=== PATIENT | female | born 1965 | race Caucasian/White ===

== ENCOUNTER 2017-10-26 06:07 | Day surgery (SDC) | payer OTHER ==
[~2017-10-26 06:07] MED LIST: CEFAZOLIN 2 GM/50 ML (PMX) 50 ML IVPB
[2017-10-26] MEDS ORDERED: MIDAZOLAM 1 MG/ML 2 ML INJ (06:26)
[2017-10-26] MEDS ORDERED: PROPOFOL 20 ML (06:26)
[2017-10-26] MEDS ORDERED: ROCURONIUM 50 MG INJ (06:26)
[2017-10-26] MEDS ORDERED: NEOSTIGMINE 3 MG/3 ML SYRINGE (06:26)
[2017-10-26] MEDS ORDERED: GLYCOPYRROLATE 0.4 MG INJ (06:26)
[2017-10-26] MEDS ORDERED: FENTAnyl 50 MCG/ML VIAL (06:26)
[2017-10-26] MEDS ORDERED: SUCCINYLCHOLINE CHLORIDE 100 MG/5 ML SYG IV ×2 (06:29→07:49)
[2017-10-26] MEDS ORDERED: FENTAnyl 50 MCG/ML VIAL IV (06:30)
[2017-10-26] MEDS ORDERED: MIDAZOLAM 1 MG/ML 2 ML INJ IV (06:30)
[2017-10-26] MEDS ORDERED: hydrALAzine 20 MG INJ IV (06:30)
[2017-10-26] MEDS ORDERED: HYDROmorphONE (0.2 MG/ML) 10ML SYG IV ×3 (06:30)
[2017-10-26] MEDS ORDERED: DIPHENHYDRAMINE 50 MG INJ IV (06:30)
[2017-10-26] MEDS ORDERED: LABETALOL HCL 20MG INJ IV (06:30)
[2017-10-26] MEDS ORDERED: OXYCODONE/ACETAMINOPHEN (5/325) TAB PO (06:30)
[2017-10-26] MEDS ORDERED: morphine (1 MG/ML) 10ML SYRINGE IV ×3 (06:30)
[2017-10-26] MEDS ORDERED: EPHEDrine SULFATE 50 MG/5 ML SYG IV (06:30)
[2017-10-26] MEDS ORDERED: ATROPINE 1 MG/10 ML SYRINGE IV (06:30)
[2017-10-26] MEDS ORDERED: DEXAMETHASONE 4 MG/ML 1 ML INJ (06:31)
[2017-10-26] MEDS ORDERED: ONDANSETRON 4 MG INJ (06:32)
[2017-10-26] MEDS ORDERED: CEFAZOLIN 1 GM INJ (07:00)
[2017-10-26] MEDS ORDERED: LIDOCAINE 100 MG SYRINGE (07:00)
[2017-10-26] MEDS: MEPERIDINE 25 MG INJ IV (08:59)
[2017-10-26] MEDS: ONDANSETRON 4 MG INJ IV (08:59)
[2017-10-26] MEDS: FENTAnyl 50 MCG/ML VIAL IV ×2 (08:59→09:05)
[2017-10-26] MEDS: OXYCODONE/ACETAMINOPHEN (5/325) TAB PO (09:53)
== END 2017-10-26 10:40 | disposition home or self-care (01) ==
LOC: SDS 06:07
DX: D25.9 Leiomyoma of uterus, unspecified (principal); N92.1 Excessive and frequent menstruation with irregular cycle; E11.9 Type 2 diabetes mellitus without complications; E78.5 Hyperlipidemia, unspecified; E66.01 Morbid (severe) obesity due to excess calories; Z68.41 Body mass index [BMI] 40.0-44.9, adult
CPT/HCPCS: 58558; 82962; 88305

== ENCOUNTER 2018-04-18 19:54 | Emergency (ER) | payer OTHER ==
[2018-04-18] MEDS: ONDANSETRON 4 MG INJ IV (20:37)
[2018-04-18] MEDS: HYDROmorphONE 0.5 MG/0.5 ML SYG IV (20:37)
[2018-04-18] MEDS: SOD CHLORIDE 0.9% 1,000 ML IV (20:37)
[2018-04-18 20:38] LABS: URINE PH (Dip) POC 6.5 (5.0-8.5)
[2018-04-18 20:38] LABS: URINE BLOOD (Dip) POC Negative (NEGATIVE); URINE KETONES (Dip) POC Negative (NEGATIVE); URINE LEUKOCYTE EST (Dip) POC Negative (NEGATIVE); URINE NITRITE (Dip) POC Negative (NEGATIVE); URINE TOTAL PROTEIN POC Negative (NEGATIVE)
[2018-04-18 20:44] LABS: ADD MAN DIFF? NO
[2018-04-18 20:46] LABS: BASOPHILS % 0.2 % (0.0-2.0); EOSINOPHILS # 0.1 10^3/ul (0.0-0.5); EOSINOPHILS % 1.1 % (0.0-7.0); HEMATOCRIT 37.5 % (37.0-47.0); HEMOGLOBIN 11.6 g/dl (12.0-16.0); LYMPHOCYTES # 1.5 10^3/ul (0.8-2.9); LYMPHOCYTES % 28.2 % (15.0-51.0); MEAN CORPUSCULAR HEMOGLOBIN 25.8 pg (29.0-33.0); MEAN CORPUSCULAR HGB CONC 30.9 g/dl (32.0-37.0); MEAN CORPUSCULAR VOLUME 83.5 fl (82.0-101.0); MEAN PLATELET VOLUME 10.7 fl (7.4-10.4); MONOCYTE # 0.5 10^3/ul (0.3-0.9); MONOCYTES % 9.9 % (0.0-11.0); NEUTROPHIL # 3.3 10^3/ul (1.6-7.5); NEUTROPHILS % 60.4 % (39.0-77.0); PLATELET COUNT 147 10^3/UL (140-415); RED BLOOD COUNT 4.49 10^6/ul (4.20-5.40); RED CELL DISTRIBUTION WIDTH 15.3 % (11.5-14.5)
[2018-04-18 20:46] LABS: WHITE BLOOD COUNT 5.5 10^3/ul (4.8-10.8)
[2018-04-18 21:15] LABS: ALANINE AMINOTRANSFERASE 78 IU/L (13-69); ALKALINE PHOSPHATASE 60 IU/L (42-121); ANION GAP 12 (8-16); ASPARTATE AMINO TRANSFERASE 61 IU/L (15-46); BILIRUBIN,INDIRECT 0.4 mg/dl (0-1.1); BILIRUBIN,TOTAL 0.4 mg/dl (0.2-1.3); BLOOD UREA NITROGEN 12 mg/dl (7-20); CALCIUM 9.6 mg/dl (8.4-10.2); CARBON DIOXIDE 27 mmol/L (21-31); CHLORIDE 109 mmol/L (97-110); CREATININE 0.66 mg/dl (0.44-1.00); GLUCOSE 137 mg/dl (70-220); LIPASE 114 U/L (23-300); SODIUM 144 mmol/L (135-144)
== END 2018-04-18 22:53 | disposition home or self-care (01) ==
LOC: E/R 19:54
DX: K59.00 Constipation, unspecified (principal); D64.9 Anemia, unspecified; R74.0 Nonspecific elevation of levels of transaminase and lactic acid dehydrogenase [LDH]; E11.9 Type 2 diabetes mellitus without complications; Z79.84 Long term (current) use of oral hypoglycemic drugs; Z85.41 Personal history of malignant neoplasm of cervix uteri
CPT/HCPCS: 36415; 80053; 81003; 81025; 83690; 85025; 96374; 96375; 99284-25

== ENCOUNTER 2018-05-09 11:20 | Inpatient (IN) | payer OTHER ==
[2018-05-08 12:18] LABS: ADD MAN DIFF? NO
[2018-05-08 12:21] LABS: WHITE BLOOD COUNT 3.5 10^3/ul (4.8-10.8)
[2018-05-08 12:21] LABS: BASOPHILS % 0.6 % (0.0-2.0); EOSINOPHILS % 1.1 % (0.0-7.0); HEMATOCRIT 37.3 % (37.0-47.0); HEMOGLOBIN 11.7 g/dl (12.0-16.0); LYMPHOCYTES # 1.3 10^3/ul (0.8-2.9); LYMPHOCYTES % 36.8 % (15.0-51.0); MEAN CORPUSCULAR HEMOGLOBIN 26.2 pg (29.0-33.0); MEAN CORPUSCULAR HGB CONC 31.4 g/dl (32.0-37.0); MEAN CORPUSCULAR VOLUME 83.4 fl (82.0-101.0); MEAN PLATELET VOLUME 10.7 fl (7.4-10.4); MONOCYTE # 0.3 10^3/ul (0.3-0.9); MONOCYTES % 9.1 % (0.0-11.0); NEUTROPHIL # 1.8 10^3/ul (1.6-7.5); NEUTROPHILS % 52.1 % (39.0-77.0); PLATELET COUNT 125 10^3/UL (140-415); RED BLOOD COUNT 4.47 10^6/ul (4.20-5.40); RED CELL DISTRIBUTION WIDTH 15.9 % (11.5-14.5)
[2018-05-08 12:23] LABS: ADD UMIC NO; UR ASCORBIC ACID NEGATIVE (NEGATIVE); UR BILIRUBIN (Dip) NEGATIVE (NEGATIVE); UR BLOOD (Dip) NEGATIVE (NEGATIVE); UR CLARITY CLEAR (CLEAR); UR COLOR YELLOW (YELLOW); UR GLUCOSE (Dip) NEGATIVE (NEGATIVE); UR KETONES (Dip) NEGATIVE (NEGATIVE); UR LEUKOCYTE ESTERASE (Dip) NEGATIVE Leu/ul (NEGATIVE); UR NITRITE (Dip) NEGATIVE (NEGATIVE); UR SPECIFIC GRAVITY (Dip) 1.018 (1.003-1.030); UR TOTAL PROTEIN (Dip) NEGATIVE (NEGATIVE); UR UROBILINOGEN (Dip) 1+ mg/dL (NEGATIVE)
[2018-05-08 12:38] LABS: ALANINE AMINOTRANSFERASE 75 IU/L (13-69); ALBUMIN 3.5 g/dl (3.3-4.9); ALBUMIN/GLOBULIN RATIO 0.87; ALKALINE PHOSPHATASE 57 IU/L (42-121); ANION GAP 11 (8-16); ASPARTATE AMINO TRANSFERASE 62 IU/L (15-46); BILIRUBIN,INDIRECT 0.5 mg/dl (0-1.1); BILIRUBIN,TOTAL 0.5 mg/dl (0.2-1.3); BLOOD UREA NITROGEN 9 mg/dl (7-20); CALCIUM 9.8 mg/dl (8.4-10.2); CARBON DIOXIDE 29 mmol/L (21-31); CHLORIDE 105 mmol/L (97-110); CREATININE 0.62 mg/dl (0.44-1.00); GLUCOSE 134 mg/dl (70-220); POTASSIUM 4.3 mmol/L (3.5-5.1); SODIUM 141 mmol/L (135-144); TOTAL PROTEIN 7.5 g/dl (6.1-8.1)
[2018-05-08 12:40] LABS: PROTIME 13.3 Sec (11.9-14.9)
[2018-05-08 12:41] LABS: PARTIAL THROMBOPLASTIN TIME 31.9 Sec (23.0-35.0)
[~2018-05-09 11:20] MED LIST changes: +CEFAZOLIN 1 GM INJ; -CEFAZOLIN 2 GM/50 ML (PMX) 50 ML IVPB; +HETASTARCH 6% NACL 500 ML BAG; +SUCCINYLCHOLINE CHLORIDE 100 MG/5 ML SYG IV
[2018-05-09] MEDS ORDERED: MIDAZOLAM 1 MG/ML 2 ML INJ (13:55)
[2018-05-09] MEDS ORDERED: CEFAZOLIN 1 GM INJ (13:55)
[2018-05-09] MEDS ORDERED: morphine SULFATE/PF (10 MG/10 ML) INJ (13:55)
[2018-05-09] MEDS ORDERED: ROCURONIUM 50 MG INJ (13:55)
[2018-05-09] MEDS ORDERED: PROPOFOL 20 ML (13:55)
[2018-05-09] MEDS ORDERED: ROPIVACAINE 0.5 % 30 ML VIAL (13:55)
[2018-05-09] MEDS ORDERED: PHENYLephrine (100 MCG/ML) 5ML SYG ×4 (14:31→17:01)
[2018-05-09] MEDS ORDERED: EPHEDrine SULFATE 50 MG/5 ML SYG (14:45)
[2018-05-09] MEDS ORDERED: METOCLOPRAMIDE 10 MG INJ (16:04)
[2018-05-09] MEDS ORDERED: ACETAMINOPHEN 1000MG/100ML IV 100 ML (16:04)
[2018-05-09] MEDS ORDERED: DEXAMETHASONE 4 MG/ML 1 ML INJ (16:04)
[2018-05-09] MEDS ORDERED: SUGAMMADEX SODIUM 200 MG/2 ML VIAL IV (16:04)
[2018-05-09] MEDS ORDERED: ONDANSETRON 4 MG INJ (16:04)
[2018-05-09] MEDS ORDERED: KETOROLAC 30 MG INJ (16:04)
[2018-05-09] MEDS ORDERED: morphine 2 MG INJ IV ×3 (17:00→18:00)
[2018-05-09] MEDS ORDERED: HYDROCODONE/APAP (5/325) TAB PO ×2 (17:00→18:00)
[2018-05-09] MEDS ORDERED: ALBUMIN HUMAN 5% 250 ML (17:37)
[2018-05-09] MEDS: ALBUMIN HUMAN 5% 250 ML IV (17:52)
[2018-05-09] MEDS ORDERED: ACETAMINOPHEN 500 MG TAB PO (18:00)
[2018-05-09] MEDS ORDERED: HYDROmorphONE 1 MG/5 ML IV SYRINGE IV ×3 (18:00)
[2018-05-09] MEDS ORDERED: NALOXONE (0.4 MG/ML) INJ IV (18:00)
[2018-05-09] MEDS ORDERED: HYDROmorphONE 0.5 MG/0.5 ML SYG IV (18:00)
[2018-05-09] MEDS ORDERED: hydrALAzine 20 MG INJ IV (18:00)
[2018-05-09] MEDS ORDERED: OXYCODONE/ACETAMINOPHEN (5/325) TAB PO (18:00)
[2018-05-09] MEDS ORDERED: MEPERIDINE 25 MG INJ IV (18:00)
[2018-05-09] MEDS ORDERED: FENTAnyl 50 MCG/ML VIAL IV ×3 (18:00)
[2018-05-09] MEDS ORDERED: METOCLOPRAMIDE 10 MG INJ IV (18:00)
[2018-05-09] MEDS ORDERED: LABETALOL HCL 20MG INJ IV (18:00)
[2018-05-09] MEDS ORDERED: ONDANSETRON 4 MG INJ IV ×2 (18:00)
[2018-05-09] MEDS ORDERED: NALBUPHINE HCL (10 MG/1 ML) INJ IV (18:00)
[2018-05-09] MEDS ORDERED: DIPHENHYDRAMINE 50 MG INJ IV ×2 (18:00)
[2018-05-09] MEDS ORDERED: EPHEDrine SULFATE 50 MG/5 ML SYG IV (18:00)
[2018-05-09] MEDS: EPHEDrine SULFATE 50 MG/5 ML SYG IV (18:08)
[2018-05-09 18:44] LABS: ADD MAN DIFF? NO
[2018-05-09 18:46] LABS: WHITE BLOOD COUNT 4.9 10^3/ul (4.8-10.8)
[2018-05-09 18:46] LABS: EOSINOPHILS % 0.4 % (0.0-7.0); HEMATOCRIT 37.1 % (37.0-47.0); HEMOGLOBIN 11.1 g/dl (12.0-16.0); LYMPHOCYTES # 0.9 10^3/ul (0.8-2.9); LYMPHOCYTES % 17.5 % (15.0-51.0); MEAN CORPUSCULAR HEMOGLOBIN 25.8 pg (29.0-33.0); MEAN CORPUSCULAR HGB CONC 29.9 g/dl (32.0-37.0); MEAN CORPUSCULAR VOLUME 86.3 fl (82.0-101.0); MEAN PLATELET VOLUME 11.5 fl (7.4-10.4); MONOCYTE # 0.1 10^3/ul (0.3-0.9); MONOCYTES % 2.3 % (0.0-11.0); NEUTROPHIL # 3.9 10^3/ul (1.6-7.5); NEUTROPHILS % 79.4 % (39.0-77.0); PLATELET COUNT 111 10^3/UL (140-415); RED CELL DISTRIBUTION WIDTH 15.9 % (11.5-14.5)
[2018-05-09 19:02] LABS: ANION GAP 9 (8-16); BLOOD UREA NITROGEN 8 mg/dl (7-20); CALCIUM 7.8 mg/dl (8.4-10.2); CARBON DIOXIDE 23 mmol/L (21-31); CHLORIDE 114 mmol/L (97-110); GLUCOSE 119 mg/dl (70-220); POTASSIUM 3.9 mmol/L (3.5-5.1); SODIUM 142 mmol/L (135-144)
[2018-05-09] MEDS: HYDROmorphONE 0.5 MG/0.5 ML SYG IV (20:07)
[2018-05-10 05:07] LABS: ABNORMAL IP MESSAGE 1; ADD MAN DIFF? NO; HEMATOCRIT 33.1 % (37.0-47.0); HEMOGLOBIN 10.1 g/dl (12.0-16.0); LYMPHOCYTES # 0.5 10^3/ul (0.8-2.9); LYMPHOCYTES % 12.7 % (15.0-51.0); MEAN CORPUSCULAR HGB CONC 30.5 g/dl (32.0-37.0); MEAN CORPUSCULAR VOLUME 85.3 fl (82.0-101.0); MONOCYTE # 0.2 10^3/ul (0.3-0.9); MONOCYTES % 4.5 % (0.0-11.0); NEUTROPHIL # 3.3 10^3/ul (1.6-7.5); NEUTROPHILS % 82.6 % (39.0-77.0); PLATELET COUNT 111 10^3/UL (140-415); RED BLOOD COUNT 3.88 10^6/ul (4.20-5.40); RED CELL DISTRIBUTION WIDTH 15.8 % (11.5-14.5)
[2018-05-10] MEDS: SOD CHLORIDE 0.9% 500 ML IV (05:13)
[2018-05-10 05:41] LABS: ANION GAP 8 (8-16); BLOOD UREA NITROGEN 10 mg/dl (7-20); CALCIUM 7.8 mg/dl (8.4-10.2); CARBON DIOXIDE 24 mmol/L (21-31); CHLORIDE 111 mmol/L (97-110); CREATININE 0.55 mg/dl (0.44-1.00); GLUCOSE 172 mg/dl (70-220); POTASSIUM 4.9 mmol/L (3.5-5.1); SODIUM 138 mmol/L (135-144)
[2018-05-10 05:49] LABS: POSITIVE DIFF @See below
[2018-05-10] MEDS: ACETAMINOPHEN 325 MG TAB PO ×3 (06:40→17:55)
[2018-05-10] MEDS ORDERED: GLUCOSE GEL 15 GRAM TUBE BUCCAL (08:30)
[2018-05-10] MEDS ORDERED: GLUCAGON 1 MG INJ IM (08:30)
[2018-05-10] MEDS ORDERED: GLUCOSE GEL 15 GRAM TUBE PO ×2 (08:30)
[2018-05-10] MEDS ORDERED: DEXTROSE 50% 50 ML SYRINGE IV ×2 (08:30)
[2018-05-10] MEDS: DOCUSATE SODIUM 100 MG CAP PO ×2 (08:48→20:34)
[2018-05-10] MEDS: RANITIDINE 150 MG TAB PO ×2 (08:48→20:34)
[2018-05-10] MEDS: CHOLECALCIFEROL 2,000 UNIT CAP PO (08:48)
[2018-05-10] MEDS: POLYETHYLENE GLYCOL 17 GM PACKET PO ×2 (08:49→20:35)
[2018-05-10] MEDS: metFORMIN 500 MG TAB PO ×2 (08:49→20:37)
[2018-05-10] MEDS: CLOTRIMAZOLE 1% 30 GM CR TOP ×2 (09:46→20:37)
[2018-05-10] MEDS: SERTRALINE 50 MG TAB PO (09:46)
[2018-05-10] MEDS ORDERED: ACCU-CHEK XX (11:10)
[2018-05-10] MEDS: INSULIN ASPART [NOVOLOG] 3 ML PEN SC ×3 (11:40→20:37)
[2018-05-10] MEDS: ACCU-CHEK XX ×3 (12:37→21:00)
[2018-05-10] MEDS: MEDROXYPROGESTERONE 10 MG TAB PO (12:48)
[2018-05-10] MEDS ORDERED: GLIMEPIRIDE 4 MG TAB PO (17:55)
[2018-05-10] MEDS: ATORVASTATIN 20 MG TAB PO (20:35)
[2018-05-11] MEDS: ACETAMINOPHEN 325 MG TAB PO ×3 (02:05→17:32)
[2018-05-11 05:01] LABS: ADD MAN DIFF? NO
[2018-05-11 05:03] LABS: BASOPHILS % 0.2 % (0.0-2.0); EOSINOPHILS % 0.3 % (0.0-7.0); HEMATOCRIT 33.7 % (37.0-47.0); HEMOGLOBIN 10.1 g/dl (12.0-16.0); LYMPHOCYTES # 2.1 10^3/ul (0.8-2.9); LYMPHOCYTES % 32.7 % (15.0-51.0); MEAN CORPUSCULAR HEMOGLOBIN 25.6 pg (29.0-33.0); MEAN CORPUSCULAR VOLUME 85.3 fl (82.0-101.0); MEAN PLATELET VOLUME 10.8 fl (7.4-10.4); MONOCYTE # 0.6 10^3/ul (0.3-0.9); MONOCYTES % 8.9 % (0.0-11.0); NEUTROPHIL # 3.6 10^3/ul (1.6-7.5); NEUTROPHILS % 57.6 % (39.0-77.0); PLATELET COUNT 129 10^3/UL (140-415); RED BLOOD COUNT 3.95 10^6/ul (4.20-5.40); RED CELL DISTRIBUTION WIDTH 15.9 % (11.5-14.5)
[2018-05-11 05:03] LABS: WHITE BLOOD COUNT 6.3 10^3/ul (4.8-10.8)
[2018-05-11 05:27] LABS: ANION GAP 9 (8-16); BLOOD UREA NITROGEN 15 mg/dl (7-20); CALCIUM 8.7 mg/dl (8.4-10.2); CARBON DIOXIDE 25 mmol/L (21-31); CHLORIDE 111 mmol/L (97-110); CREATININE 0.69 mg/dl (0.44-1.00); GLUCOSE 118 mg/dl (70-220); POTASSIUM 4.7 mmol/L (3.5-5.1); SODIUM 140 mmol/L (135-144)
[2018-05-11] MEDS: INSULIN ASPART [NOVOLOG] 3 ML PEN SC ×3 (07:50→17:33)
[2018-05-11] MEDS: ACCU-CHEK XX ×3 (08:42→17:33)
[2018-05-11] MEDS: POLYETHYLENE GLYCOL 17 GM PACKET PO (08:42)
[2018-05-11] MEDS: MEDROXYPROGESTERONE 10 MG TAB PO (08:43)
[2018-05-11] MEDS: SERTRALINE 50 MG TAB PO (08:43)
[2018-05-11] MEDS: CLOTRIMAZOLE 1% 30 GM CR TOP (08:43)
[2018-05-11] MEDS: metFORMIN 500 MG TAB PO (08:43)
[2018-05-11] MEDS: RANITIDINE 150 MG TAB PO (08:43)
[2018-05-11] MEDS: CHOLECALCIFEROL 2,000 UNIT CAP PO (08:43)
[2018-05-11] MEDS: DOCUSATE SODIUM 100 MG CAP PO (08:43)
== END 2018-05-11 20:20 | disposition home or self-care (01) | DRG 740 ==
LOC: REC 11:20 → MS1 18:45
PROC: 0UT9FZZ Resection of Uterus, Via Natural or Artificial Opening With Percutaneous Endoscopic Assistance (ICD-10-PCS; principal; 2018-05-09 13:00)
PROC: 0UT7FZZ Resection of Bilateral Fallopian Tubes, Via Natural or Artificial Opening With Percutaneous Endoscopic Assistance (ICD-10-PCS; 2018-05-09 13:00)
PROC: 0UT2FZZ Resection of Bilateral Ovaries, Via Natural or Artificial Opening With Percutaneous Endoscopic Assistance (ICD-10-PCS; 2018-05-09 13:00)
DX: C54.1 Malignant neoplasm of endometrium (principal); Z68.41 Body mass index [BMI] 40.0-44.9, adult; E66.9 Obesity, unspecified; I10 Essential (primary) hypertension; E78.5 Hyperlipidemia, unspecified; E11.9 Type 2 diabetes mellitus without complications; D64.9 Anemia, unspecified; N92.4 Excessive bleeding in the premenopausal period; K59.00 Constipation, unspecified; K76.0 Fatty (change of) liver, not elsewhere classified; K21.9 Gastro-esophageal reflux disease without esophagitis; F32.9 Major depressive disorder, single episode, unspecified; B35.3 Tinea pedis; Z79.4 Long term (current) use of insulin; Z79.84 Long term (current) use of oral hypoglycemic drugs
CPT/HCPCS: 80048; 80053; 81003; 82962; 85025; 85610; 85730; 86850; 86900; 86901; 88305; 88331

== ENCOUNTER 2018-06-21 19:39 | Emergency (ER) | payer OTHER ==
[2018-06-21 21:19] LABS: ADD MAN DIFF? NO
[2018-06-21 21:22] LABS: BASOPHILS % 0.2 % (0.0-2.0); EOSINOPHILS # 0.1 10^3/ul (0.0-0.5); EOSINOPHILS % 1.7 % (0.0-7.0); HEMATOCRIT 36.9 % (37.0-47.0); HEMOGLOBIN 11.6 g/dl (12.0-16.0); LYMPHOCYTES # 1.5 10^3/ul (0.8-2.9); LYMPHOCYTES % 38.4 % (15.0-51.0); MEAN CORPUSCULAR HEMOGLOBIN 26.2 pg (29.0-33.0); MEAN CORPUSCULAR HGB CONC 31.4 g/dl (32.0-37.0); MEAN CORPUSCULAR VOLUME 83.5 fl (82.0-101.0); MEAN PLATELET VOLUME 10.7 fl (7.4-10.4); MONOCYTE # 0.3 10^3/ul (0.3-0.9); MONOCYTES % 8.2 % (0.0-11.0); NEUTROPHIL # 2.1 10^3/ul (1.6-7.5); NEUTROPHILS % 51.3 % (39.0-77.0); PLATELET COUNT 118 10^3/UL (140-415); RED BLOOD COUNT 4.42 10^6/ul (4.20-5.40); RED CELL DISTRIBUTION WIDTH 15.2 % (11.5-14.5)
[2018-06-21] MEDS: MECLIZINE 12.5 MG TAB PO (21:25)
[2018-06-21] MEDS: SOD CHLORIDE 0.9% 500 ML IV (21:26)
[2018-06-21 21:42] LABS: ANION GAP 8 (5-13); BLOOD UREA NITROGEN 14 mg/dl (7-20); CALCIUM 9.5 mg/dl (8.4-10.2); CARBON DIOXIDE 27 mmol/L (21-31); CHLORIDE 106 mmol/L (97-110); CREATININE 0.55 mg/dl (0.44-1.00); Estimated GFR > 60 mL/min (>60); GLUCOSE 306 mg/dl (70-220); POTASSIUM 4.1 mmol/L (3.5-5.1); SODIUM 141 mmol/L (135-144)
[2018-06-21] MEDS ORDERED: PROCHLORPERAZINE 10 MG INJ (22:39)
[2018-06-21] MEDS ORDERED: DIPHENHYDRAMINE 50 MG INJ (22:39)
[2018-06-21] MEDS ORDERED: HYDROmorphONE 1 MG/ML SYG (22:40)
[2018-06-21] MEDS: HYDROmorphONE 1 MG/ML SYG IV (22:45)
[2018-06-21] MEDS: DIPHENHYDRAMINE 50 MG INJ IV (22:45)
[2018-06-21] MEDS: PROCHLORPERAZINE 10 MG INJ IV (22:45)
[2018-06-21] MEDS: MECLIZINE 25 MG TAB PO (22:45)
== END 2018-06-22 00:15 | disposition home or self-care (01) ==
LOC: E/R 06-22 00:15
DX: G43.909 Migraine, unspecified, not intractable, without status migrainosus (principal); R40.2142 Coma scale, eyes open, spontaneous, at arrival to emergency department; R40.2252 Coma scale, best verbal response, oriented, at arrival to emergency department; R40.2362 Coma scale, best motor response, obeys commands, at arrival to emergency department
CPT/HCPCS: 36415; 70450; 80048; 85025; 96374; 96375; 99285-25

== ENCOUNTER 2018-06-26 19:50 | Emergency (ER) | payer OTHER ==
[2018-06-26] MEDS: LORAZEPAM 1 MG TAB PO (20:30)
[2018-06-26 21:10] LABS: ADD MAN DIFF? NO
[2018-06-26 21:13] LABS: BASOPHILS % 0.4 % (0.0-2.0); EOSINOPHILS # 0.1 10^3/ul (0.0-0.5); EOSINOPHILS % 1.3 % (0.0-7.0); HEMATOCRIT 38.2 % (37.0-47.0); LYMPHOCYTES # 1.7 10^3/ul (0.8-2.9); LYMPHOCYTES % 38.7 % (15.0-51.0); MEAN CORPUSCULAR HEMOGLOBIN 26.4 pg (29.0-33.0); MEAN CORPUSCULAR HGB CONC 31.4 g/dl (32.0-37.0); MEAN CORPUSCULAR VOLUME 84.1 fl (82.0-101.0); MEAN PLATELET VOLUME 11.7 fl (7.4-10.4); MONOCYTE # 0.4 10^3/ul (0.3-0.9); MONOCYTES % 9.8 % (0.0-11.0); NEUTROPHIL # 2.2 10^3/ul (1.6-7.5); NEUTROPHILS % 49.6 % (39.0-77.0); PLATELET COUNT 121 10^3/UL (140-415); RED BLOOD COUNT 4.54 10^6/ul (4.20-5.40); RED CELL DISTRIBUTION WIDTH 15.3 % (11.5-14.5)
[2018-06-26 21:13] LABS: WHITE BLOOD COUNT 4.5 10^3/ul (4.8-10.8)
[2018-06-26 21:32] LABS: ALANINE AMINOTRANSFERASE 86 IU/L (13-69); ALBUMIN 3.9 g/dl (3.3-4.9); ALBUMIN/GLOBULIN RATIO 1.14; ALKALINE PHOSPHATASE 73 IU/L (42-121); ANION GAP 13 (5-13); ASPARTATE AMINO TRANSFERASE 60 IU/L (15-46); BILIRUBIN,INDIRECT 0.5 mg/dl (0-1.1); BILIRUBIN,TOTAL 0.5 mg/dl (0.2-1.3); BLOOD UREA NITROGEN 10 mg/dl (7-20); CALCIUM 9.3 mg/dl (8.4-10.2); CARBON DIOXIDE 27 mmol/L (21-31); CHLORIDE 99 mmol/L (97-110); CREATININE 0.58 mg/dl (0.44-1.00); Estimated GFR > 60 mL/min (>60); GLUCOSE 338 mg/dl (70-220); INR 1.07; PARTIAL THROMBOPLASTIN TIME 30.5 Sec (23.0-35.0); POTASSIUM 4.2 mmol/L (3.5-5.1); PT RATIO 1.1; SODIUM 139 mmol/L (135-144); TOTAL PROTEIN 7.3 g/dl (6.1-8.1)
[2018-06-26 21:43] LABS: TROPONIN-I < 0.012 ng/ml (0.000-0.120)
== END 2018-06-26 22:50 | disposition home or self-care (01) ==
LOC: E/R 19:50
DX: E11.65 Type 2 diabetes mellitus with hyperglycemia (principal); Z85.42 Personal history of malignant neoplasm of other parts of uterus
CPT/HCPCS: 80053; 84484; 85025; 85610; 85730; 86850; 86900; 86901; 93005; 99284-25

== ENCOUNTER 2019-01-18 07:26 | Day surgery (SDC) | payer OTHER ==
[2019-01-18] MEDS ORDERED: PROPOFOL 40 ML (08:35)
== END 2019-01-18 12:42 | disposition home or self-care (01) ==
LOC: GIL 07:26
DX: R19.4 Change in bowel habit (principal); K64.8 Other hemorrhoids; I10 Essential (primary) hypertension
CPT/HCPCS: 45378; 82962

== ENCOUNTER 2019-02-02 20:14 | Inpatient (IN) | payer OTHER ==
[2019-02-02] MEDS: SODIUM CHLORIDE 0.9% 1L BAG IV* (20:50)
[2019-02-02] MEDS: ACETAMINOPHEN 500 MG TAB PO (20:57)
[2019-02-02] MEDS: CEFEPIME 2GM/50 ML (PMX) 50 ML IVPB (20:57)
[2019-02-02 21:11] LABS: ADD MAN DIFF? NO
[2019-02-02 21:17] LABS: WHITE BLOOD COUNT 9.4 10^3/ul (4.8-10.8)
[2019-02-02 21:17] LABS: BASOPHILS % 0.3 % (0.0-2.0); HEMATOCRIT 41.5 % (37.0-47.0); HEMOGLOBIN 13.4 g/dl (12.0-16.0); LYMPHOCYTES # 0.8 10^3/ul (0.8-2.9); LYMPHOCYTES % 8.9 % (15.0-51.0); MEAN CORPUSCULAR HEMOGLOBIN 27.9 pg (29.0-33.0); MEAN CORPUSCULAR HGB CONC 32.3 g/dl (32.0-37.0); MEAN CORPUSCULAR VOLUME 86.3 fl (82.0-101.0); MEAN PLATELET VOLUME 11.5 fl (7.4-10.4); MONOCYTES % 10.3 % (0.0-11.0); NEUTROPHIL # 7.5 10^3/ul (1.6-7.5); NEUTROPHILS % 79.8 % (39.0-77.0); PLATELET COUNT 109 10^3/UL (140-415); RED BLOOD COUNT 4.81 10^6/ul (4.20-5.40); RED CELL DISTRIBUTION WIDTH 14.5 % (11.5-14.5)
[2019-02-02 21:37] LABS: INR 1.16; PROTIME 14.9 Sec (11.9-14.9); PT RATIO 1.2
[2019-02-02 21:38] LABS: PARTIAL THROMBOPLASTIN TIME 33.3 Sec (23.0-35.0)
[2019-02-02 21:41] LABS: ALANINE AMINOTRANSFERASE 95 IU/L (13-69); ALBUMIN 3.7 g/dl (3.3-4.9); ALBUMIN/GLOBULIN RATIO 0.94; ALKALINE PHOSPHATASE 61 IU/L (42-121); ANION GAP 10 (5-13); ASPARTATE AMINO TRANSFERASE 60 IU/L (15-46); BLOOD UREA NITROGEN 20 mg/dl (7-20); CALCIUM 9.2 mg/dl (8.4-10.2); CARBON DIOXIDE 21 mmol/L (21-31); CHLORIDE 108 mmol/L (97-110); CREATININE 1.61 mg/dl (0.44-1.00); Estimated GFR 34 mL/min (>60); GLUCOSE 285 mg/dl (70-220); POTASSIUM 4.1 mmol/L (3.5-5.1); SODIUM 139 mmol/L (135-144); TOTAL PROTEIN 7.6 g/dl (6.1-8.1)
[2019-02-02 21:52] LABS: TROPONIN-I 0.085 ng/ml (0.000-0.120)
[2019-02-02] MEDS: FENTAnyl 50 MCG/ML VIAL IV (21:58)
[2019-02-02 22:51] LABS: ADD UMIC YES; UR ASCORBIC ACID 20 mg/dL (NEGATIVE); UR BACTERIA FEW /HPF (NONE SEEN); UR BILIRUBIN (Dip) 1+ mg/dL (NEGATIVE); UR BLOOD (Dip) NEGATIVE (NEGATIVE); UR CLARITY CLOUDY (CLEAR); UR COLOR AMBER (YELLOW); UR GLUCOSE (Dip) 1+ mg/dL (NEGATIVE); UR HYALINE CAST FEW /HPF (NONE SEEN); UR KETONES (Dip) TRACE mg/dL (NEGATIVE); UR LEUKOCYTE ESTERASE (Dip) NEGATIVE Leu/ul (NEGATIVE); UR MUCUS MODERATE /HPF (NONE SEEN); UR NITRITE (Dip) NEGATIVE (NEGATIVE); UR RBC 2 /HPF (0-5); UR SPECIFIC GRAVITY (Dip) 1.021 (1.003-1.030); UR SQUAMOUS EPITHELIAL CELL MANY /HPF (FEW); UR TOTAL PROTEIN (Dip) 2+ mg/dl (NEGATIVE); UR UROBILINOGEN (Dip) 1+ mg/dL (NEGATIVE); UR WBC 9 /HPF (0-5)
[2019-02-02] MEDS: NORepinephrine 8MG/250 ML (PMX 250 ML IV (23:36)
[2019-02-03] MEDS: PROCHLORPERAZINE 10 MG INJ IV (00:10)
[2019-02-03 00:12] LABS: LACTIC ACID 3.5 mmol/L (0.5-2.0)
[2019-02-03] MEDS: morphine 4 MG/ML VIAL IV (01:56)
[2019-02-03] MEDS ORDERED: IPRATROPIUM (NEB) 0.5 MG/2.5 ML AMP NEB (02:00)
[2019-02-03] MEDS ORDERED: ACETAMINOPHEN 650MG/20.3ML CUP PO (02:00)
[2019-02-03] MEDS ORDERED: ALBUTEROL 0.083% (NEB) 2.5 MG/3 ML AMP NEB (02:00)
[2019-02-03] MEDS ORDERED: VANCOMYCIN IV PER PHARMACY XX (02:00)
[2019-02-03] MEDS: ACCU-CHEK XX (03:00)
[2019-02-03] MEDS: SOD CHLORIDE 0.9% 1,000 ML IV ×3 (03:04→22:00)
[2019-02-03] MEDS: PIPER-TAZO 3.375 GM IV (PMX) 100 ML IVPB ×3 (03:09→20:53)
[2019-02-03] MEDS: FAMOTIDINE 20 MG INJ IV ×2 (03:12→11:39)
[2019-02-03] MEDS: INSULIN GLARGINE [LANTus] (100 UNITS/ML) SYG SC ×3 (03:57→20:55)
[2019-02-03] MEDS: VANCOMYCIN HCL 2 GM in SOD CHLORIDE 0.9% 500 ML IVPB (03:57)
[2019-02-03] MEDS: SOD CHLORIDE 0.9% 500 ML IV ×2 (04:12→07:31)
[2019-02-03 04:19] LABS: LACTIC ACID 4.1 mmol/L (0.5-2.0)
[2019-02-03 05:41] LABS: WHITE BLOOD COUNT 17.6 10^3/ul (4.8-10.8)
[2019-02-03 05:41] LABS: HEMATOCRIT 39.2 % (37.0-47.0); HEMOGLOBIN 12.9 g/dl (12.0-16.0); MEAN CORPUSCULAR HGB CONC 32.9 g/dl (32.0-37.0); MEAN PLATELET VOLUME 10.9 fl (7.4-10.4); PLATELET COUNT 123 10^3/UL (140-415); RED BLOOD COUNT 4.61 10^6/ul (4.20-5.40); RED CELL DISTRIBUTION WIDTH 14.8 % (11.5-14.5)
[2019-02-03 05:42] LABS: ADD MAN DIFF? YES; POSITIVE DIFF @See below
[2019-02-03 05:59] LABS: INR 1.33; PROTIME 16.6 Sec (11.9-14.9); PT RATIO 1.3
[2019-02-03 06:00] LABS: PARTIAL THROMBOPLASTIN TIME 37.2 Sec (23.0-35.0)
[2019-02-03 06:01] LABS: ALANINE AMINOTRANSFERASE 85 IU/L (13-69); ALBUMIN 3.4 g/dl (3.3-4.9); ALBUMIN/GLOBULIN RATIO 1.03; ALKALINE PHOSPHATASE 53 IU/L (42-121); ANION GAP 13 (5-13); ASPARTATE AMINO TRANSFERASE 46 IU/L (15-46); BILIRUBIN,INDIRECT 1.6 mg/dl (0-1.1); BILIRUBIN,TOTAL 1.6 mg/dl (0.2-1.3); BLOOD UREA NITROGEN 18 mg/dl (7-20); CALCIUM 8.6 mg/dl (8.4-10.2); CARBON DIOXIDE 17 mmol/L (21-31); CHLORIDE 112 mmol/L (97-110); CHOL/HDL RATIO 1.6 RATIO; CHOLESTEROL 73 mg/dl (100-200); CREATININE 1.02 mg/dl (0.44-1.00); Estimated GFR 57 mL/min (>60); GLUCOSE 289 mg/dl (70-220); HDL CHOLESTEROL 43 mg/dl (37-92); LDL CHOLESTEROL,CALCULATED 15 mg/dl; MAGNESIUM 1.2 mg/dl (1.7-2.5); POTASSIUM 4.2 mmol/L (3.5-5.1); SODIUM 142 mmol/L (135-144); TOTAL PROTEIN 6.7 g/dl (6.1-8.1); TRIGLYCERIDES 77 mg/dl (0-149)
[2019-02-03 06:20] LABS: ANISOCYTOSIS 1+ (0-0); BAND NEUTROPHILS #M 7.9 10^3/ul (0.0-0.6); BAND NEUTROPHILS % (M) 45 % (0-4); LYMPHOCYTES #M 0.7 10^3/ul (0.8-2.9); LYMPHOCYTES % (M) 4 % (15-51); MONOCYTES % (M) 6 % (0-11); PLATELET ESTIMATE DECREASED; POIKILOCYTOSIS 2+ (0-0); POLYCHROMASIA 3+ (0-0); SEG NEUT #M 9.3 10^3/ul (1.6-7.5); SEGMENTED NEUTROPHILS (M) % 45 % (39-77); SMUDGE%M 1 % (0-0)
[2019-02-03 06:31] LABS: THYROID STIMULATING HORMONE 0.771 MIU/L (0.465-4.680)
[2019-02-03] MEDS ORDERED: INSULIN ASPART [NOVOLOG] 3 ML PEN SC (08:00)
[2019-02-03 08:08] LABS: C-REACTIVE PROTEIN 8.7 mg/dl (0.0-0.9)
[2019-02-03] MEDS: MAGNESIUM SULFATE 4 GM/100 ML 100 ML IVPB (08:19)
[2019-02-03 08:45] LABS: HEMOGLOBIN A1C 8.3 % (0-5.9)
[2019-02-03] MEDS: INSULIN ASPART [NOVOLOG] 3 ML PEN SC ×4 (08:50→20:52)
[2019-02-03] MEDS: ENOXAPARIN 40 MG/0.4 ML SYG SC (08:51)
[2019-02-03 08:52] LABS: ERYTHROCYTE SEDIMENTATION RATE 19 mm/Hr (0-30)
[2019-02-03] MEDS: SOD CHLORIDE 0.9% 100 ML (09:20)
[2019-02-03] MEDS: IOHEXOL 100 ML (09:20)
[2019-02-03] MEDS: IOHEXOL 350MG/ML 50 ML BTL (09:20)
[2019-02-03] MEDS: LACTATED RINGER'S 1,000 ML IV (11:39)
[2019-02-03] MEDS: PHENYLephrine 20MG IN 250 ML 250 ML IV (11:42)
[2019-02-03] MEDS: LORAZEPAM 1 MG TAB PO ×2 (14:04→22:00)
[2019-02-03] MEDS: morphine 2 MG INJ IV (16:27)
[2019-02-03] MEDS: metroNIDAZOLE 500 MG/NS (PMX) 100 ML IVPB ×2 (16:42→21:59)
[2019-02-03] MEDS: VANCOMYCIN 1 GM 250 ML IVPB (16:47)
[2019-02-03] MEDS ORDERED: GLUCOSE GEL 15 GRAM TUBE PO ×2 (17:00)
[2019-02-03] MEDS ORDERED: DEXTROSE 50% 50 ML SYRINGE IV ×2 (17:00)
[2019-02-03] MEDS ORDERED: GLUCAGON 1 MG INJ IM (17:00)
[2019-02-03] MEDS ORDERED: GLUCOSE GEL 15 GRAM TUBE BUCCAL (17:00)
[2019-02-03] MEDS: ATORVASTATIN 20 MG TAB PO (20:52)
[2019-02-04] MEDS: INSULIN ASPART [NOVOLOG] 3 ML PEN SC ×6 (01:00→21:00)
[2019-02-04] MEDS ORDERED: ACCU-CHEK XX (02:00)
[2019-02-04] MEDS: ACCU-CHEK XX (02:00)
[2019-02-04] MEDS ORDERED: VANCOMYCIN HCL 1.25 GM in SOD CHLORIDE 0.9% 250 ML IVPB (03:00)
[2019-02-04] MEDS: morphine 2 MG INJ IV (04:34)
[2019-02-04] MEDS: VANCOMYCIN 1 GM 250 ML IVPB ×2 (04:47→18:05)
[2019-02-04 05:31] LABS: WHITE BLOOD COUNT 7.8 10^3/ul (4.8-10.8)
[2019-02-04 05:31] LABS: ABNORMAL IP MESSAGE 1; HEMATOCRIT 33.2 % (37.0-47.0); HEMOGLOBIN 10.9 g/dl (12.0-16.0); MEAN CORPUSCULAR HEMOGLOBIN 27.9 pg (29.0-33.0); MEAN CORPUSCULAR HGB CONC 32.8 g/dl (32.0-37.0); MEAN CORPUSCULAR VOLUME 85.1 fl (82.0-101.0); MEAN PLATELET VOLUME 11.1 fl (7.4-10.4); PLATELET COUNT 84 10^3/UL (140-415); RED CELL DISTRIBUTION WIDTH 15.2 % (11.5-14.5)
[2019-02-04] MEDS: PIPER-TAZO 3.375 GM IV (PMX) 100 ML IVPB ×2 (05:53→13:17)
[2019-02-04] MEDS: metroNIDAZOLE 500 MG/NS (PMX) 100 ML IVPB ×3 (05:53→21:54)
[2019-02-04 05:58] LABS: ADD MAN DIFF? YES; POSITIVE DIFF @See below
[2019-02-04] MEDS: LORAZEPAM 1 MG TAB PO ×3 (06:00→22:52)
[2019-02-04 06:21] LABS: ALANINE AMINOTRANSFERASE 62 IU/L (13-69); ALBUMIN 2.7 g/dl (3.3-4.9); ALBUMIN/GLOBULIN RATIO 0.81; ALKALINE PHOSPHATASE 42 IU/L (42-121); ANION GAP 4 (5-13); ASPARTATE AMINO TRANSFERASE 27 IU/L (15-46); BILIRUBIN,INDIRECT 0.6 mg/dl (0-1.1); BILIRUBIN,TOTAL 0.6 mg/dl (0.2-1.3); BLOOD UREA NITROGEN 10 mg/dl (7-20); CALCIUM 8.2 mg/dl (8.4-10.2); CARBON DIOXIDE 23 mmol/L (21-31); CHLORIDE 116 mmol/L (97-110); CREATININE 0.67 mg/dl (0.44-1.00); Estimated GFR > 60 mL/min (>60); GLUCOSE 116 mg/dl (70-220); POTASSIUM 3.8 mmol/L (3.5-5.1); SODIUM 143 mmol/L (135-144)
[2019-02-04] MEDS: SOD CHLORIDE 0.9% 1,000 ML IV (07:50)
[2019-02-04 08:23] LABS: PHOSPHORUS 1.8 mg/dl (2.5-4.9)
[2019-02-04 08:23] LABS: MAGNESIUM 2.3 mg/dl (1.7-2.5)
[2019-02-04] MEDS: SERTRALINE 50 MG TAB PO (08:35)
[2019-02-04] MEDS: ENOXAPARIN 40 MG/0.4 ML SYG SC (08:41)
[2019-02-04] MEDS: RANITIDINE 150 MG TAB PO (09:24)
[2019-02-04 09:57] LABS: BAND NEUTROPHILS #M 1.1 10^3/ul (0.0-0.6); BAND NEUTROPHILS % (M) 15 % (0-4); LYMPHOCYTES % (M) 13 % (15-51); MONOCYTE #M 0.3 10^3/ul (0.3-0.9); MONOCYTES % (M) 5 % (0-11); PLATELET ESTIMATE DECREASED; POIKILOCYTOSIS 1+ (0-0); SEG NEUT #M 5.3 10^3/ul (1.6-7.5); SEGMENTED NEUTROPHILS (M) % 67 % (39-77); SMUDGE%M 13 % (0-0)
[2019-02-04] MEDS ORDERED: POTASSIUM PHOSPHATE 60 MEQ in SOD CHLORIDE 0.9% 250 ML IVPB (10:30)
[2019-02-04] MEDS: POTASSIUM PHOSPHATE 60 MEQ in SOD CHLORIDE 0.9% 500 ML IVPB (11:49)
[2019-02-04 15:54] LABS: VANCOMYCIN,TROUGH 6.2 ug/ml (10.0-20.0)
[2019-02-04] MEDS: VANCOMYCIN TROUGH LEVEL XX (15:57)
[2019-02-04] MEDS: ATORVASTATIN 20 MG TAB PO (21:54)
[2019-02-04] MEDS: INSULIN GLARGINE [LANTus] (100 UNITS/ML) SYG SC (22:00)
[2019-02-05] MEDS: INSULIN ASPART [NOVOLOG] 3 ML PEN SC ×6 (01:00→21:00)
[2019-02-05] MEDS: ACCU-CHEK XX (02:00)
[2019-02-05] MEDS: VANCOMYCIN HCL 1.5 GM in SOD CHLORIDE 0.9% 250 ML IVPB ×2 (02:00→14:55)
[2019-02-05] MEDS: metroNIDAZOLE 500 MG/NS (PMX) 100 ML IVPB ×3 (05:06→21:58)
[2019-02-05] MEDS: LORAZEPAM 1 MG TAB PO ×3 (05:12→21:58)
[2019-02-05 05:23] LABS: ADD MAN DIFF? NO
[2019-02-05 05:30] LABS: WHITE BLOOD COUNT 7.7 10^3/ul (4.8-10.8)
[2019-02-05 05:30] LABS: BASOPHILS % 0.3 % (0.0-2.0); EOSINOPHILS # 0.1 10^3/ul (0.0-0.5); EOSINOPHILS % 1.2 % (0.0-7.0); HEMATOCRIT 35.4 % (37.0-47.0); HEMOGLOBIN 11.6 g/dl (12.0-16.0); LYMPHOCYTES # 1.9 10^3/ul (0.8-2.9); LYMPHOCYTES % 24.7 % (15.0-51.0); MEAN CORPUSCULAR HEMOGLOBIN 27.9 pg (29.0-33.0); MEAN CORPUSCULAR HGB CONC 32.8 g/dl (32.0-37.0); MEAN CORPUSCULAR VOLUME 85.1 fl (82.0-101.0); MEAN PLATELET VOLUME 11.5 fl (7.4-10.4); MONOCYTE # 0.5 10^3/ul (0.3-0.9); MONOCYTES % 5.8 % (0.0-11.0); NEUTROPHIL # 5.2 10^3/ul (1.6-7.5); NEUTROPHILS % 67.2 % (39.0-77.0); PLATELET COUNT 113 10^3/UL (140-415); RED BLOOD COUNT 4.16 10^6/ul (4.20-5.40); RED CELL DISTRIBUTION WIDTH 15.3 % (11.5-14.5)
[2019-02-05 05:47] LABS: ALANINE AMINOTRANSFERASE 51 IU/L (13-69); ALBUMIN 2.9 g/dl (3.3-4.9); ALBUMIN/GLOBULIN RATIO 0.82; ALKALINE PHOSPHATASE 53 IU/L (42-121); ANION GAP 7 (5-13); ASPARTATE AMINO TRANSFERASE 30 IU/L (15-46); BILIRUBIN,INDIRECT 0.5 mg/dl (0-1.1); BILIRUBIN,TOTAL 0.5 mg/dl (0.2-1.3); BLOOD UREA NITROGEN 10 mg/dl (7-20); CALCIUM 8.9 mg/dl (8.4-10.2); CARBON DIOXIDE 23 mmol/L (21-31); CHLORIDE 113 mmol/L (97-110); CREATININE 0.62 mg/dl (0.44-1.00); Estimated GFR > 60 mL/min (>60); GLUCOSE 99 mg/dl (70-220); POTASSIUM 3.8 mmol/L (3.5-5.1); SODIUM 143 mmol/L (135-144); TOTAL PROTEIN 6.4 g/dl (6.1-8.1)
[2019-02-05 05:53] LABS: ANION GAP 7 (5-13); BLOOD UREA NITROGEN 10 mg/dl (7-20); CALCIUM 8.8 mg/dl (8.4-10.2); CARBON DIOXIDE 23 mmol/L (21-31); CHLORIDE 113 mmol/L (97-110); CREATININE 0.57 mg/dl (0.44-1.00); Estimated GFR > 60 mL/min (>60); GLUCOSE 97 mg/dl (70-220); MAGNESIUM 1.9 mg/dl (1.7-2.5); PHOSPHORUS 2.3 mg/dl (2.5-4.9); POTASSIUM 3.9 mmol/L (3.5-5.1); SODIUM 143 mmol/L (135-144)
[2019-02-05 05:54] LABS: INR 1.11; PROTIME 14.4 Sec (11.9-14.9); PT RATIO 1.1
[2019-02-05 08:34] LABS: MAGNESIUM 1.9 mg/dl (1.7-2.5)
[2019-02-05 08:34] LABS: PHOSPHORUS 2.3 mg/dl (2.5-4.9)
[2019-02-05] MEDS: SOD CHLORIDE 0.9% 1,000 ML IV (09:14)
[2019-02-05] MEDS: SERTRALINE 50 MG TAB PO (09:41)
[2019-02-05] MEDS: RANITIDINE 150 MG TAB PO (09:41)
[2019-02-05] MEDS: morphine 2 MG INJ IV (09:44)
[2019-02-05] MEDS: ENOXAPARIN 40 MG/0.4 ML SYG SC (09:44)
[2019-02-05 09:56] LABS: ADD UMIC YES; UR ASCORBIC ACID NEGATIVE (NEGATIVE); UR BILIRUBIN (Dip) NEGATIVE (NEGATIVE); UR BLOOD (Dip) 1+ mg/dL (NEGATIVE); UR CLARITY CLEAR (CLEAR); UR COLOR YELLOW (YELLOW); UR GLUCOSE (Dip) NEGATIVE (NEGATIVE); UR KETONES (Dip) 1+ mg/dL (NEGATIVE); UR LEUKOCYTE ESTERASE (Dip) TRACE Leu/ul (NEGATIVE); UR MUCUS FEW /HPF (NONE SEEN); UR NITRITE (Dip) NEGATIVE (NEGATIVE); UR RBC 9 /HPF (0-5); UR SPECIFIC GRAVITY (Dip) 1.024 (1.003-1.030); UR TOTAL PROTEIN (Dip) NEGATIVE (NEGATIVE); UR UROBILINOGEN (Dip) NEGATIVE (NEGATIVE); UR WBC 1 /HPF (0-5)
[2019-02-05 12:51] LABS: SODIUM,URINE RANDOM > 198 mmol/L (30-90)
[2019-02-05 12:57] LABS: ANCA SCREEN NEGATIVE (NEGATIVE)
[2019-02-05] MEDS: POTASSIUM PHOSPHATE 20 MEQ in SOD CHLORIDE 0.9% 250 ML IVPB (13:21)
[2019-02-05 13:47] LABS: MYELOPEROXIDASE ANTIBODY <1.0 AI; PROTEINASE-3 ANTIBODY <1.0 AI
[2019-02-05] MEDS: PROPOFOL 40 ML (18:04)
[2019-02-05] MEDS: ATORVASTATIN 20 MG TAB PO (21:05)
[2019-02-05] MEDS: INSULIN GLARGINE [LANTus] (100 UNITS/ML) SYG SC (21:15)
[2019-02-05] MEDS: ONDANSETRON 4 MG INJ IV (22:10)
[2019-02-06] MEDS: INSULIN ASPART [NOVOLOG] 3 ML PEN SC ×6 (01:00→21:00)
[2019-02-06] MEDS: ACCU-CHEK XX (02:00)
[2019-02-06] MEDS: VANCOMYCIN HCL 1.5 GM in SOD CHLORIDE 0.9% 250 ML IVPB (03:03)
[2019-02-06] MEDS: LORAZEPAM 1 MG TAB PO ×3 (05:45→22:13)
[2019-02-06] MEDS: metroNIDAZOLE 500 MG/NS (PMX) 100 ML IVPB (05:46)
[2019-02-06 06:39] LABS: ADD MAN DIFF? NO
[2019-02-06 06:46] LABS: BASOPHILS % 0.5 % (0.0-2.0); EOSINOPHILS # 0.1 10^3/ul (0.0-0.5); EOSINOPHILS % 1.4 % (0.0-7.0); HEMATOCRIT 34.2 % (37.0-47.0); HEMOGLOBIN 11.3 g/dl (12.0-16.0); LYMPHOCYTES # 1.5 10^3/ul (0.8-2.9); LYMPHOCYTES % 33.6 % (15.0-51.0); MEAN CORPUSCULAR HEMOGLOBIN 28.1 pg (29.0-33.0); MEAN CORPUSCULAR VOLUME 85.1 fl (82.0-101.0); MEAN PLATELET VOLUME 11.5 fl (7.4-10.4); MONOCYTE # 0.3 10^3/ul (0.3-0.9); MONOCYTES % 7.1 % (0.0-11.0); NEUTROPHIL # 2.5 10^3/ul (1.6-7.5); NEUTROPHILS % 56.5 % (39.0-77.0); PLATELET COUNT 115 10^3/UL (140-415); RED BLOOD COUNT 4.02 10^6/ul (4.20-5.40); RED CELL DISTRIBUTION WIDTH 14.9 % (11.5-14.5)
[2019-02-06 06:46] LABS: WHITE BLOOD COUNT 4.4 10^3/ul (4.8-10.8)
[2019-02-06 07:02] LABS: ALANINE AMINOTRANSFERASE 47 IU/L (13-69); ALBUMIN 2.6 g/dl (3.3-4.9); ALBUMIN/GLOBULIN RATIO 0.76; ALKALINE PHOSPHATASE 43 IU/L (42-121); ANION GAP 6 (5-13); ASPARTATE AMINO TRANSFERASE 42 IU/L (15-46); BILIRUBIN,INDIRECT 0.4 mg/dl (0-1.1); BILIRUBIN,TOTAL 0.4 mg/dl (0.2-1.3); BLOOD UREA NITROGEN 8 mg/dl (7-20); CALCIUM 8.3 mg/dl (8.4-10.2); CARBON DIOXIDE 24 mmol/L (21-31); CHLORIDE 111 mmol/L (97-110); CREATININE 0.61 mg/dl (0.44-1.00); Estimated GFR > 60 mL/min (>60); GLUCOSE 94 mg/dl (70-220); POTASSIUM 3.7 mmol/L (3.5-5.1); SODIUM 141 mmol/L (135-144)
[2019-02-06] MEDS: morphine 2 MG INJ IV (08:35)
[2019-02-06] MEDS: SERTRALINE 50 MG TAB PO (11:01)
[2019-02-06] MEDS: RANITIDINE 150 MG TAB PO (11:01)
[2019-02-06] MEDS: ENOXAPARIN 40 MG/0.4 ML SYG SC (11:05)
[2019-02-06] MEDS: metroNIDAZOLE 500 MG TAB PO ×2 (14:04→22:13)
[2019-02-06 15:12] LABS: VANCOMYCIN,TROUGH 9.4 ug/ml (10.0-20.0)
[2019-02-06 15:42] LABS: HEPATITIS B SURFACE ANTIBODY NEGATIVE (NEGATIVE)
[2019-02-06 15:44] LABS: HEPATITIS B CORE ANTIBODY NEGATIVE (NEGATIVE)
[2019-02-06 15:44] LABS: HEPATITIS C VIRAL ANTIBODY NEGATIVE (NEGATIVE)
[2019-02-06 15:45] LABS: CREATININE, RANDOM URINE 136 mg/dL (20-275); MICROALBUMIN 2.2 mg/dL; MICROALBUMIN/CREATININE RATIO 16 (<30)
[2019-02-06] MEDS: ATORVASTATIN 20 MG TAB PO (20:50)
[2019-02-06] MEDS: INSULIN GLARGINE [LANTus] (100 UNITS/ML) SYG SC (20:58)
[2019-02-07] MEDS: INSULIN ASPART [NOVOLOG] 3 ML PEN SC ×6 (01:00→21:00)
[2019-02-07] MEDS: ACCU-CHEK XX (02:00)
[2019-02-07] MEDS: metroNIDAZOLE 500 MG TAB PO ×3 (05:58→21:33)
[2019-02-07] MEDS: LORAZEPAM 1 MG TAB PO ×3 (05:58→21:33)
[2019-02-07 06:43] LABS: HEMATOCRIT 35.7 % (37.0-47.0); HEMOGLOBIN 11.6 g/dl (12.0-16.0); MEAN CORPUSCULAR HEMOGLOBIN 27.3 pg (29.0-33.0); MEAN CORPUSCULAR HGB CONC 32.5 g/dl (32.0-37.0); MEAN PLATELET VOLUME 10.9 fl (7.4-10.4); PLATELET COUNT 125 10^3/UL (140-415); RED BLOOD COUNT 4.25 10^6/ul (4.20-5.40); RED CELL DISTRIBUTION WIDTH 14.6 % (11.5-14.5)
[2019-02-07 06:43] LABS: WHITE BLOOD COUNT 4.6 10^3/ul (4.8-10.8)
[2019-02-07 06:49] LABS: POSITIVE DIFF @See below
[2019-02-07 06:50] LABS: ADD MAN DIFF? YES
[2019-02-07 07:12] LABS: ANION GAP 7 (5-13); BLOOD UREA NITROGEN 8 mg/dl (7-20); CALCIUM 8.9 mg/dl (8.4-10.2); CARBON DIOXIDE 26 mmol/L (21-31); CHLORIDE 107 mmol/L (97-110); CREATININE 0.63 mg/dl (0.44-1.00); Estimated GFR > 60 mL/min (>60); GLUCOSE 99 mg/dl (70-220); POTASSIUM 3.6 mmol/L (3.5-5.1); SODIUM 140 mmol/L (135-144)
[2019-02-07 07:20] LABS: PHOSPHORUS 4.1 mg/dl (2.5-4.9)
[2019-02-07 07:20] LABS: MAGNESIUM 1.6 mg/dl (1.7-2.5)
[2019-02-07] MEDS: RANITIDINE 150 MG TAB PO (08:34)
[2019-02-07] MEDS: MAGNESIUM SULFATE 2 GM/50 ML 50 ML IVPB (08:34)
[2019-02-07] MEDS: SERTRALINE 50 MG TAB PO (08:35)
[2019-02-07] MEDS: ENOXAPARIN 40 MG/0.4 ML SYG SC (08:53)
[2019-02-07 09:07] LABS: ANISOCYTOSIS 1+ (0-0); BAND NEUTROPHILS #M 0.2 10^3/ul (0.0-0.6); BAND NEUTROPHILS % (M) 6 % (0-4); EOSINOPHILS % (M) 2 % (0-7); GIANT THROMBO% (M) 1 % (0-0); LYMPHOCYTES #M 1.6 10^3/ul (0.8-2.9); LYMPHOCYTES % (M) 36 % (15-51); MONOCYTE #M 0.2 10^3/ul (0.3-0.9); MONOCYTES % (M) 6 % (0-11); PLATELET ESTIMATE DECREASED; POIKILOCYTOSIS 1+ (0-0); REACTIVE LYMPHOCYTES #M 0.1 10^3/ul (0.0-0.0); REACTIVE LYMPHOCYTES% (M) 4 % (0-0); SEG NEUT #M 2.1 10^3/ul (1.6-7.5); SEGMENTED NEUTROPHILS (M) % 46 % (39-77); SMUDGE%M 12 % (0-0)
[2019-02-07] MEDS: BISACODYL (EC) 5 MG TAB PO (11:59)
[2019-02-07] MEDS: morphine 2 MG INJ IV (14:28)
[2019-02-07] MEDS: MAGNESIUM CITRATE 300 ML BTL PO (18:13)
[2019-02-07] MEDS: POLYETHYLENE GLYCOL 3350 119 GM POWDER PO (18:35)
[2019-02-07] MEDS: ATORVASTATIN 20 MG TAB PO (21:33)
[2019-02-07] MEDS: INSULIN GLARGINE [LANTus] (100 UNITS/ML) SYG SC (21:43)
[2019-02-08 00:44] LABS: OCCULT BLOOD STOOL POSITIVE (NEGATIVE)
[2019-02-08] MEDS: INSULIN ASPART [NOVOLOG] 3 ML PEN SC ×6 (01:00→21:58)
[2019-02-08] MEDS: ACCU-CHEK XX (02:00)
[2019-02-08] MEDS: LORAZEPAM 1 MG TAB PO ×3 (05:39→21:38)
[2019-02-08] MEDS: POLYETHYLENE GLYCOL 3350 119 GM POWDER PO (05:39)
[2019-02-08] MEDS: metroNIDAZOLE 500 MG TAB PO ×3 (05:39→21:38)
[2019-02-08 06:55] LABS: WHITE BLOOD COUNT 4.8 10^3/ul (4.8-10.8)
[2019-02-08 06:55] LABS: HEMATOCRIT 37.1 % (37.0-47.0); HEMOGLOBIN 12.3 g/dl (12.0-16.0); MEAN CORPUSCULAR HEMOGLOBIN 27.6 pg (29.0-33.0); MEAN CORPUSCULAR HGB CONC 33.2 g/dl (32.0-37.0); MEAN CORPUSCULAR VOLUME 83.4 fl (82.0-101.0); MEAN PLATELET VOLUME 11.3 fl (7.4-10.4); PLATELET COUNT 147 10^3/UL (140-415); RED BLOOD COUNT 4.45 10^6/ul (4.20-5.40); RED CELL DISTRIBUTION WIDTH 14.8 % (11.5-14.5)
[2019-02-08 06:57] LABS: POSITIVE DIFF @See below
[2019-02-08 06:58] LABS: ADD MAN DIFF? YES
[2019-02-08 07:16] LABS: PHOSPHORUS 3.7 mg/dl (2.5-4.9)
[2019-02-08 07:16] LABS: MAGNESIUM 1.9 mg/dl (1.7-2.5)
[2019-02-08 07:17] LABS: ANION GAP 7 (5-13); BLOOD UREA NITROGEN 7 mg/dl (7-20); CALCIUM 9.1 mg/dl (8.4-10.2); CARBON DIOXIDE 27 mmol/L (21-31); CHLORIDE 108 mmol/L (97-110); Estimated GFR > 60 mL/min (>60); GLUCOSE 127 mg/dl (70-220); POTASSIUM 3.4 mmol/L (3.5-5.1); SODIUM 142 mmol/L (135-144)
[2019-02-08] MEDS: ETOMIDATE 20 MG INJ (09:29)
[2019-02-08] MEDS: PROPOFOL 20 ML (09:29)
[2019-02-08] MEDS: morphine 2 MG INJ IV ×2 (10:26→11:39)
[2019-02-08] MEDS: BISACODYL (EC) 5 MG TAB PO (11:33)
[2019-02-08] MEDS: SERTRALINE 50 MG TAB PO (11:39)
[2019-02-08] MEDS: POTASSIUM CHLORIDE (SR) 20 MEQ TAB PO (11:39)
[2019-02-08] MEDS: RANITIDINE 150 MG TAB PO (11:39)
[2019-02-08 14:21] LABS: MITOCHONDRIAL TB NEGATIVE (NEGATIVE); SMOOTH MUSCLE AB SCREEN NEGATIVE (NEGATIVE)
[2019-02-08 15:56] LABS: ANA SCREEN NEGATIVE (NEGATIVE)
[2019-02-08] MEDS: ATORVASTATIN 20 MG TAB PO (20:55)
[2019-02-08] MEDS: INSULIN GLARGINE [LANTus] (100 UNITS/ML) SYG SC (21:03)
[2019-02-09] MEDS: INSULIN ASPART [NOVOLOG] 3 ML PEN SC ×6 (00:58→20:46)
[2019-02-09] MEDS: ACCU-CHEK XX (02:00)
[2019-02-09] MEDS: LORAZEPAM 1 MG TAB PO ×3 (05:43→21:42)
[2019-02-09] MEDS: metroNIDAZOLE 500 MG TAB PO ×3 (05:43→22:07)
[2019-02-09] MEDS: SERTRALINE 50 MG TAB PO (08:02)
[2019-02-09] MEDS: RANITIDINE 150 MG TAB PO (08:02)
[2019-02-09] MEDS: morphine 2 MG INJ IV (11:38)
[2019-02-09] MEDS: ATORVASTATIN 20 MG TAB PO (20:37)
[2019-02-09] MEDS: INSULIN GLARGINE [LANTus] (100 UNITS/ML) SYG SC (20:46)
[2019-02-10] MEDS: INSULIN ASPART [NOVOLOG] 3 ML PEN SC ×5 (00:40→20:45)
[2019-02-10 05:08] LABS: ADD MAN DIFF? NO
[2019-02-10 05:19] LABS: BASOPHILS % 0.3 % (0.0-2.0); EOSINOPHILS # 0.1 10^3/ul (0.0-0.5); EOSINOPHILS % 1.9 % (0.0-7.0); HEMATOCRIT 37.6 % (37.0-47.0); HEMOGLOBIN 12.2 g/dl (12.0-16.0); LYMPHOCYTES % 34.3 % (15.0-51.0); MEAN CORPUSCULAR HEMOGLOBIN 27.4 pg (29.0-33.0); MEAN CORPUSCULAR HGB CONC 32.4 g/dl (32.0-37.0); MEAN CORPUSCULAR VOLUME 84.5 fl (82.0-101.0); MONOCYTE # 0.5 10^3/ul (0.3-0.9); MONOCYTES % 8.9 % (0.0-11.0); NEUTROPHIL # 3.2 10^3/ul (1.6-7.5); NEUTROPHILS % 54.3 % (39.0-77.0); PLATELET COUNT 156 10^3/UL (140-415); RED BLOOD COUNT 4.45 10^6/ul (4.20-5.40); RED CELL DISTRIBUTION WIDTH 15.1 % (11.5-14.5)
[2019-02-10 05:19] LABS: WHITE BLOOD COUNT 5.9 10^3/ul (4.8-10.8)
[2019-02-10 05:41] LABS: ANION GAP 6 (5-13); BLOOD UREA NITROGEN 9 mg/dl (7-20); CARBON DIOXIDE 27 mmol/L (21-31); CHLORIDE 106 mmol/L (97-110); CREATININE 0.64 mg/dl (0.44-1.00); Estimated GFR > 60 mL/min (>60); GLUCOSE 108 mg/dl (70-220); PHOSPHORUS 3.7 mg/dl (2.5-4.9); POTASSIUM 3.5 mmol/L (3.5-5.1); SODIUM 139 mmol/L (135-144)
[2019-02-10] MEDS: metroNIDAZOLE 500 MG TAB PO ×2 (06:17→14:50)
[2019-02-10] MEDS: LORAZEPAM 1 MG TAB PO ×3 (06:17→22:35)
[2019-02-10] MEDS: SERTRALINE 50 MG TAB PO (08:43)
[2019-02-10] MEDS: RANITIDINE 150 MG TAB PO (08:43)
[2019-02-10] MEDS: METOCLOPRAMIDE 10 MG INJ (11:16)
[2019-02-10] MEDS: ONDANSETRON 4 MG INJ (11:18)
[2019-02-10] MEDS: INSULIN GLARGINE [LANTus] (100 UNITS/ML) SYG SC (20:44)
[2019-02-10] MEDS: ATORVASTATIN 20 MG TAB PO (20:46)
[2019-02-10] MEDS: NYSTATIN 30 GM POWDER BTL TOP (20:46)
[2019-02-11] MEDS: ACCU-CHEK XX (02:02)
[2019-02-11] MEDS: LORAZEPAM 1 MG TAB PO ×3 (05:48→21:00)
[2019-02-11 05:52] LABS: ADD MAN DIFF? NO
[2019-02-11 05:56] LABS: BASOPHILS % 0.5 % (0.0-2.0); EOSINOPHILS # 0.1 10^3/ul (0.0-0.5); EOSINOPHILS % 2.1 % (0.0-7.0); HEMATOCRIT 36.8 % (37.0-47.0); HEMOGLOBIN 12.1 g/dl (12.0-16.0); LYMPHOCYTES # 2.2 10^3/ul (0.8-2.9); LYMPHOCYTES % 35.8 % (15.0-51.0); MEAN CORPUSCULAR HEMOGLOBIN 28.1 pg (29.0-33.0); MEAN CORPUSCULAR HGB CONC 32.9 g/dl (32.0-37.0); MEAN CORPUSCULAR VOLUME 85.6 fl (82.0-101.0); MEAN PLATELET VOLUME 11.5 fl (7.4-10.4); MONOCYTE # 0.5 10^3/ul (0.3-0.9); MONOCYTES % 7.8 % (0.0-11.0); NEUTROPHIL # 3.3 10^3/ul (1.6-7.5); NEUTROPHILS % 53.3 % (39.0-77.0); PLATELET COUNT 169 10^3/UL (140-415); RED CELL DISTRIBUTION WIDTH 15.3 % (11.5-14.5)
[2019-02-11 05:56] LABS: WHITE BLOOD COUNT 6.2 10^3/ul (4.8-10.8)
[2019-02-11 06:44] LABS: ANION GAP 8 (5-13); BLOOD UREA NITROGEN 10 mg/dl (7-20); CALCIUM 9.1 mg/dl (8.4-10.2); CARBON DIOXIDE 26 mmol/L (21-31); CHLORIDE 108 mmol/L (97-110); CREATININE 0.61 mg/dl (0.44-1.00); Estimated GFR > 60 mL/min (>60); GLUCOSE 107 mg/dl (70-220); POTASSIUM 3.7 mmol/L (3.5-5.1); SODIUM 142 mmol/L (135-144)
[2019-02-11] MEDS: INSULIN ASPART [NOVOLOG] 3 ML PEN SC ×4 (08:00→20:51)
[2019-02-11] MEDS: SERTRALINE 50 MG TAB PO (09:17)
[2019-02-11] MEDS: RANITIDINE 150 MG TAB PO (09:17)
[2019-02-11] MEDS: NYSTATIN 30 GM POWDER BTL TOP ×2 (09:17→20:54)
[2019-02-11] MEDS: LOPERAMIDE 2 MG CAP PO (16:52)
[2019-02-11] MEDS: INSULIN GLARGINE [LANTus] (100 UNITS/ML) SYG SC (20:51)
[2019-02-11] MEDS: ATORVASTATIN 20 MG TAB PO (20:53)
[2019-02-12] MEDS: ACCU-CHEK XX (02:00)
[2019-02-12 05:21] LABS: ADD MAN DIFF? NO
[2019-02-12 05:25] LABS: BASOPHILS % 0.5 % (0.0-2.0); EOSINOPHILS # 0.1 10^3/ul (0.0-0.5); HEMOGLOBIN 12.6 g/dl (12.0-16.0); LYMPHOCYTES # 2.4 10^3/ul (0.8-2.9); LYMPHOCYTES % 37.4 % (15.0-51.0); MEAN CORPUSCULAR HEMOGLOBIN 27.8 pg (29.0-33.0); MEAN CORPUSCULAR HGB CONC 32.3 g/dl (32.0-37.0); MEAN CORPUSCULAR VOLUME 85.9 fl (82.0-101.0); MEAN PLATELET VOLUME 11.2 fl (7.4-10.4); MONOCYTE # 0.5 10^3/ul (0.3-0.9); MONOCYTES % 7.6 % (0.0-11.0); NEUTROPHIL # 3.3 10^3/ul (1.6-7.5); NEUTROPHILS % 52.2 % (39.0-77.0); PLATELET COUNT 169 10^3/UL (140-415); RED BLOOD COUNT 4.54 10^6/ul (4.20-5.40); RED CELL DISTRIBUTION WIDTH 15.3 % (11.5-14.5)
[2019-02-12 05:25] LABS: WHITE BLOOD COUNT 6.4 10^3/ul (4.8-10.8)
[2019-02-12] MEDS: LORAZEPAM 1 MG TAB PO ×4 (05:30→21:00)
[2019-02-12 06:43] LABS: ANION GAP 8 (5-13); BLOOD UREA NITROGEN 11 mg/dl (7-20); CALCIUM 9.3 mg/dl (8.4-10.2); CARBON DIOXIDE 27 mmol/L (21-31); CHLORIDE 108 mmol/L (97-110); CREATININE 0.73 mg/dl (0.44-1.00); Estimated GFR > 60 mL/min (>60); GLUCOSE 116 mg/dl (70-220); POTASSIUM 4.3 mmol/L (3.5-5.1); SODIUM 143 mmol/L (135-144)
[2019-02-12] MEDS: INSULIN ASPART [NOVOLOG] 3 ML PEN SC ×4 (08:00→20:59)
[2019-02-12] MEDS: RANITIDINE 150 MG TAB PO (09:40)
[2019-02-12] MEDS: SERTRALINE 50 MG TAB PO (09:40)
[2019-02-12] MEDS: NYSTATIN 30 GM POWDER BTL TOP ×2 (09:51→21:00)
[2019-02-12] MEDS: INSULIN GLARGINE [LANTus] (100 UNITS/ML) SYG SC (20:58)
[2019-02-12] MEDS: ATORVASTATIN 20 MG TAB PO (20:59)
[2019-02-13] MEDS: ACCU-CHEK XX (02:00)
[2019-02-13 05:35] LABS: ADD MAN DIFF? NO
[2019-02-13 05:37] LABS: WHITE BLOOD COUNT 6.4 10^3/ul (4.8-10.8)
[2019-02-13 05:37] LABS: BASOPHILS % 0.3 % (0.0-2.0); EOSINOPHILS # 0.1 10^3/ul (0.0-0.5); EOSINOPHILS % 1.6 % (0.0-7.0); HEMATOCRIT 42.5 % (37.0-47.0); HEMOGLOBIN 13.4 g/dl (12.0-16.0); LYMPHOCYTES # 2.3 10^3/ul (0.8-2.9); LYMPHOCYTES % 36.5 % (15.0-51.0); MEAN CORPUSCULAR HEMOGLOBIN 27.4 pg (29.0-33.0); MEAN CORPUSCULAR HGB CONC 31.5 g/dl (32.0-37.0); MEAN CORPUSCULAR VOLUME 86.9 fl (82.0-101.0); MEAN PLATELET VOLUME 11.3 fl (7.4-10.4); MONOCYTE # 0.4 10^3/ul (0.3-0.9); MONOCYTES % 6.8 % (0.0-11.0); NEUTROPHIL # 3.5 10^3/ul (1.6-7.5); NEUTROPHILS % 54.5 % (39.0-77.0); PLATELET COUNT 179 10^3/UL (140-415); RED BLOOD COUNT 4.89 10^6/ul (4.20-5.40); RED CELL DISTRIBUTION WIDTH 15.5 % (11.5-14.5)
[2019-02-13] MEDS: LORAZEPAM 1 MG TAB PO ×2 (06:00→13:56)
[2019-02-13 06:10] LABS: ANION GAP 10 (5-13); BLOOD UREA NITROGEN 11 mg/dl (7-20); CALCIUM 9.6 mg/dl (8.4-10.2); CARBON DIOXIDE 24 mmol/L (21-31); CHLORIDE 108 mmol/L (97-110); Estimated GFR > 60 mL/min (>60); GLUCOSE 118 mg/dl (70-220); POTASSIUM 4.2 mmol/L (3.5-5.1); SODIUM 142 mmol/L (135-144)
[2019-02-13] MEDS: INSULIN ASPART [NOVOLOG] 3 ML PEN SC ×2 (08:00→12:34)
[2019-02-13] MEDS: SERTRALINE 50 MG TAB PO (08:19)
[2019-02-13] MEDS: LOPERAMIDE 2 MG CAP PO (08:19)
[2019-02-13] MEDS: RANITIDINE 150 MG TAB PO (08:19)
[2019-02-13] MEDS: NYSTATIN 30 GM POWDER BTL TOP (08:22)
== END 2019-02-13 17:10 | disposition home health service (06) | DRG 871 ==
LOC: 5EC 02-10 01:40 → E/R 20:14 → ICU 02-03 00:15 → TEL 02-05 16:49
PROVIDERS: Family Medicine
PROC: 0DB68ZX Excision of Stomach, Via Natural or Artificial Opening Endoscopic, Diagnostic (ICD-10-PCS; principal; 2019-02-05 17:21)
PROC: 0DBK8ZX Excision of Ascending Colon, Via Natural or Artificial Opening Endoscopic, Diagnostic (ICD-10-PCS; 2019-02-05 17:21)
PROC: 0DBM8ZX Excision of Descending Colon, Via Natural or Artificial Opening Endoscopic, Diagnostic (ICD-10-PCS; 2019-02-05 17:21)
DX: A41.9 Sepsis, unspecified organism (principal); R65.21 Severe sepsis with septic shock; J18.9 Pneumonia, unspecified organism; Z68.41 Body mass index [BMI] 40.0-44.9, adult; E87.2 Acidosis; N17.9 Acute kidney failure, unspecified; D69.6 Thrombocytopenia, unspecified; E87.8 Other disorders of electrolyte and fluid balance, not elsewhere classified; E66.01 Morbid (severe) obesity due to excess calories; E11.65 Type 2 diabetes mellitus with hyperglycemia; R16.2 Hepatomegaly with splenomegaly, not elsewhere classified; K76.0 Fatty (change of) liver, not elsewhere classified; K52.839 Microscopic colitis, unspecified; F32.9 Major depressive disorder, single episode, unspecified; E78.5 Hyperlipidemia, unspecified; K21.9 Gastro-esophageal reflux disease without esophagitis; E55.9 Vitamin D deficiency, unspecified; K52.9 Noninfective gastroenteritis and colitis, unspecified; I86.4 Gastric varices; I10 Essential (primary) hypertension; Z79.4 Long term (current) use of insulin
CPT/HCPCS: 36415; 71045; 74176; 75635; 76705; 80048; 80053; 80061; 80202; 81001; 81003; 82043; 82270; 82306; 82962; 83036; 83605; 83735; 84100; 84155; 84300; 84443; 84484; 84703; 85025; 85610; 85651; 85730; 86021; 86038; 86140; 86255; 86674; 86704; 86706; 86803; 87040-91; 87045; 87075; 87081; 87086; 87177; 87205; 88305; 88312; 93005; 96365; 96366; 96375; 97110; 97116; 97162; 97167; 97530; 99291-25